=== PATIENT | male | born 1935 | race Caucasian/White ===

== ENCOUNTER 2017-06-02 18:42 | Emergency (ER) | payer MEDICARE, OTHER ==
[2017-06-02 18:56] VITALS: BP 148/53
--- NOTE | 2017-06-02 19:27 | ER Document Report ---
ED Medical Screen (RME) - General Chief Complaint: Blood Pressure Problem Stated Complaint: BLOOD PRESSURE ISSUES Time Seen by Provider: 06/02/17 19:22 Notes: Patient went to urgent care today and his blood pressure was elevated above 200 systolic. He was given 0.2 mL grams of clonidine sublingually. After that he became lightheaded and had some trouble walking. Urgent care felt that he needed to be further evaluated to the [place] to the emergency department. Patient states urgent care told him that they will recheck him tomorrow morning. Patient has been on his current blood pressure regimen for over 2 years and has not missed any doses. Patient does not usually take clonidine. Patient states he currently feels that his legs are a little heavy and is a little lightheaded but is feeling much better than when he was at urgent care. TRAVEL OUTSIDE OF THE [place] IN LAST 30 DAYS: No - Related Data Allergies/Adverse Reactions: acetaminophen [From Percocet] Allergy (Verified 06/02/17 19:14) amoxicillin [From Augmentin] Allergy (Verified 06/02/17 19:14) clavulanic acid [From Augmentin] Allergy (Verified 06/02/17 19:14) hydrocodone Allergy (Verified 06/02/17 19:14) levofloxacin [From Levaquin] Allergy (Verified 06/02/17 19:14) oxycodone [From Percocet] Allergy (Verified 06/02/17 19:14) Home Medications: Current Home Medications Aspirin 325 mg PO DAILY 06/02/17 [History] Azelastine HCl 205.5 mcg NS DAILY 06/02/17 [History] Docusate Sodium [Colace 100 mg Capsule] 100 mg PO DAILY 06/02/17 [History] Fluticasone Propionate [Flonase Allergy Relief] 9.9 ml NS DAILY 06/02/17 [ History] Glucosam/Chond-MSM 2/C/D3/Chetan [Hakhneyriz-Gnydxhaipiq-ZDZ Tab] 1 each PO DAILY 06/02/17 [History] Irbesartan/Hydrochlorothiazide [Irbesartan-Hctz 300-12.5 mg Tb] 1 tab PO DAILY 06/02/17 [History] Magnesium Oxide 400 mg PO QHS 06/02/17 [History] Metformin HCl [Metformin HCl] 1,000 mg PO BID 06/02/17 [History] Multivitamin [Multivitamins] 1 each PO QHS 06/02/17 [History] Rosuvastatin Calcium [Rosuvastatin Calcium] 20 mg PO QHS 06/02/17 [History] Saw [place] Xtr/Zinc Picolin [Saw [place] 80 mg Capsule] 1 each PO DAILY 06/02 [History] Past Medical History Renal/ Medical History: Denies: Hx Peritoneal Dialysis Physical Exam - Vital signs Vitals: Temp Pulse Resp BP Pulse Ox 98.6 F 65 15 148/53 H 97 06/02/17 18:52 06/02/17 18:52 06/02/17 18:52 06/02/17 18:52 06/02/17 18:52 Course - Vital Signs Vital signs: Temp Pulse Resp BP Pulse Ox 98.6 F 65 15 148/53 H 97 06/02/17 18:52 06/02/17 18:52 06/02/17 18:52 06/02/17 18:52 06/02/17 18:52
[2017-06-02 20:41] LABS: ABSOLUTE BASOPHILS # (AUTO) 0.1 10^3/uL (0.0-0.2); ABSOLUTE EOSINOPHILS # (AUTO) 0.2 10^3/uL (0.0-0.6); ABSOLUTE LYMPHOCYTES (AUTO) 1.5 10^3/uL (0.5-4.7); ABSOLUTE MONOCYTES (AUTO) 0.5 10^3/uL (0.1-1.4); ABSOLUTE NEUT (AUTO) 4.3 10^3/uL (1.7-8.2); BASOPHILS % (AUTO) 0.8 % (0-2); EOSINOPHILS % (AUTO) 3.7 % (0-6); HEMATOCRIT 34.6 % (37.9-51.0); HGB HCT DIFFERENCE 1.4; LYMPHOCYTES % (AUTO) 22.5 % (13-45); MEAN CORPUSCULAR HEMOGLOBIN 34.4 pg (27.0-33.4); MEAN CORPUSCULAR HGB CONC 34.9 g/dL (32.0-36.0); MEAN CORPUSCULAR VOLUME 99 fl (80-97); MONOCYTES % (AUTO) 7.3 % (3-13); SEGMENTED NEUTROPHILS % (AUTO) 65.7 % (42-78); WHITE BLOOD COUNT 6.6 10^3/uL (4.0-10.5)
[2017-06-02 21:15] LABS: ALANINE AMINOTRANSFERASE 31 U/L (21-72); ALBUMIN 3.9 g/dL (3.5-5.0); ALKALINE PHOSPHATASE 47 U/L (38-126); ANION GAP 9 (5-19); ASPARTATE AMINO TRANSFERASE 20 U/L (17-59); BILIRUBIN,DIRECT 0.4 mg/dL (0.0-0.4); BILIRUBIN,TOTAL 0.9 mg/dL (0.2-1.3); BLOOD UREA NITROGEN 13 mg/dL (7-20); CARBON DIOXIDE 25 mmol/L (22-30); CHLORIDE 104 mmol/L (98-107); CREATININE RESULT 0.96 mg/dL (0.52-1.25); GLUCOSE 127 mg/dL (75-110); POTASSIUM 4.2 mmol/L (3.6-5.0); SODIUM 138.4 mmol/L (137-145); TOTAL PROTEIN 6.7 g/dL (6.3-8.2)
--- NOTE | 2017-06-02 23:32 | ER Document Report ---
ED Blood Pressure Problem - General Chief Complaint: Blood Pressure Problem Stated Complaint: BLOOD PRESSURE ISSUES Time Seen by Provider: 06/02/17 19:22 Notes: The patient is an 81-year-old male, past medical history hypertension (out of BP meds for the past 2 years), presents from the urgent care center after his blood pressure was 210/107. He was given clonidine 0.2 mg and then felt slightly lightheaded. On arrival to the ER, his blood pressure is 148/53 and is completely asymptomatic. Patient said that he has an appointment at the urgent care center tomorrow to have his blood pressure rechecked and discuss adjusting blood pressure medications. TRAVEL OUTSIDE OF THE [place] IN LAST 30 DAYS: No - Related Data Allergies/Adverse Reactions: acetaminophen [From Percocet] Allergy (Verified 06/02/17 19:14) amoxicillin [From Augmentin] Allergy (Verified 06/02/17 19:14) clavulanic acid [From Augmentin] Allergy (Verified 06/02/17 19:14) hydrocodone Allergy (Verified 06/02/17 19:14) levofloxacin [From Levaquin] Allergy (Verified 06/02/17 19:14) oxycodone [From Percocet] Allergy (Verified 06/02/17 19:14) Home Medications: Current Home Medications Aspirin 325 mg PO DAILY 06/02/17 [History] Azelastine HCl 205.5 mcg NS DAILY 06/02/17 [History] Docusate Sodium [Colace 100 mg Capsule] 100 mg PO DAILY 06/02/17 [History] Fluticasone Propionate [Flonase Allergy Relief] 9.9 ml NS DAILY 06/02/17 [ History] Glucosam/Chond-MSM 2/C/D3/Chetan [Ufwpyufsjm-Idyptoyjxuq-QJG Tab] 1 each PO DAILY 06/02/17 [History] Irbesartan/Hydrochlorothiazide [Irbesartan-Hctz 300-12.5 mg Tb] 1 tab PO DAILY 06/02/17 [History] Magnesium Oxide 400 mg PO QHS 06/02/17 [History] Metformin HCl [Metformin HCl] 1,000 mg PO BID 06/02/17 [History] Multivitamin [Multivitamins] 1 each PO QHS 06/02/17 [History] Rosuvastatin Calcium [Rosuvastatin Calcium] 20 mg PO QHS 06/02/17 [History] Saw [place] Xtr/Zinc Picolin [Saw [place] 80 mg Capsule] 1 each PO DAILY 06/02 [History] Past Medical History - General Information source: Patient - Social History Smoking Status: Unknown if Ever Smoked Family History: Reviewed & Not Pertinent Patient has suicidal ideation: No Patient has homicidal ideation: No Renal/ Medical History: Denies: Hx Peritoneal Dialysis Review of Systems - Review of Systems Notes: REVIEW OF SYSTEMS: CONSTITUTIONAL: -fevers, -chills EENT: -eye pain, -difficulty swallowing, -nasal congestion CARDIOVASCULAR:-chest pain, -syncope. RESPIRATORY: -cough, -SOB GASTROINTESTINAL: -abdominal pain, -nausea, -vomiting, -diarrhea GENITOURINARY: -dysuria, -hematuria MUSCULOSKELETAL: -back pain, -neck pain SKIN: -rash or skin lesions. HEMATOLOGIC: -easy bruising or bleeding. LYMPHATIC: -swollen, enlarged glands. NEUROLOGICAL: -altered mental status or loss of consciousness, -headache, - neurologic symptoms PSYCHIATRIC: -anxiety, -depression. ALL OTHER SYSTEMS REVIEWED AND NEGATIVE. Physical Exam - Vital signs Vitals: Temp Pulse Resp BP Pulse Ox 98.6 F 65 15 148/53 H 97 06/02/17 18:52 06/02/17 18:52 06/02/17 18:52 06/02/17 18:52 06/02/17 18:52 - Notes Notes: PHYSICAL EXAMINATION: GENERAL: Well-appearing, well-nourished and in no acute distress. HEAD: Atraumatic, normocephalic. EYES: Pupils equal round and reactive to light, extraocular movements intact, sclera anicteric, conjunctiva are normal. ENT: nares patent, oropharynx clear without exudates. Moist mucous membranes. NECK: Normal range of motion, supple without lymphadenopathy LUNGS: Breath sounds clear to auscultation bilaterally and equal. No wheezes rales or rhonchi. HEART: Regular rate and rhythm without murmurs ABDOMEN: Soft, nontender, normoactive bowel sounds. No guarding, no rebound. No masses appreciated. EXTREMITIES: Normal range of motion, no pitting or edema. No cyanosis. NEUROLOGICAL: Cranial nerves grossly intact. Normal speech, normal gait. Normal sensory and motor exams. PSYCH: Normal mood, normal affect. SKIN: Warm, Dry, normal turgor, no rashes or lesions noted. Course - Re-evaluation Re-evalutation: On arrival to the ER, the patient's blood pressure is 148/53 after he received 0.2 mg clonidine by his primary care physician just prior to arrival. He is completely asymptomatic. Blood pressure increased to 207/100 and he remains asymptomatic. He has an appointment with his primary care physician tomorrow to discuss blood pressure adjustments. Based on ACEP guidelines, blood pressure medication adjustments should be done by primary care physician. Instructed patient about this and he understands. Given very strict return precautions. - Vital Signs Vital signs: Temp Pulse Resp BP Pulse Ox 98.6 F 65 15 148/53 H 97 06/02/17 18:52 06/02/17 18:52 06/02/17 18:52 06/02/17 18:52 06/02/17 18:52 - Laboratory Result Diagrams: 06/02/17 20:10 06/02/17 20:10 Laboratory results interpreted by me: 06/02/17 06/02/17 20:10 20:10 RBC 3.50 L Hgb 12.0 L Hct 34.6 L MCV 99 H MCH 34.4 H RDW 15.0 H Glucose 127 H Discharge - Discharge Clinical Impression: Asymptomatic hypertension Condition: Stable Disposition: HOME, SELF-CARE Additional Instructions: Follow-up with your primary care physician as scheduled tomorrow to have your blood pressure medications possibly adjusted. HIGH BLOOD PRESSURE REQUIRING TREATMENT: Your blood pressure is high. This is called "hypertension." Today's reading was 148/53 (normal is less than 140/90). Your history and exam suggest that this is not a temporary problem. You need treatment of your blood pressure. If left untreated, high blood pressure greatly increases your risk of heart attack and stroke. Please don't ignore this problem. If you have blood pressure medicine but aren't using it regularly, start taking it again. Some simple things you can do to help are: Get some aerobic exercise for at least 20 minutes on a daily basis. (See your doctor before beginning any new exercise program.) Eat a low-fat diet. Lose excess weight. Avoid salty foods and avoid adding salt to any of the foods you eat. Avoid diet pills, decongestants, "energizing" herbs, and other medicines that elevate blood pressure. There are many different medicines that treat blood pressure. If your medication causes unpleasant side effects, call your doctor. There are others you can try. Treating hypertension is a life-long investment in your health. FOLLOW-UP CARE: If you have been referred to a physician for follow-up care, call the physician s office for an appointment as you were instructed or within the next two days. If you experience worsening or a significant change in your symptoms, notify the physician immediately or return to the Emergency Department at any time for re-evaluation. Forms: Elevated Blood Pressure
== END 2017-06-02 23:55 | disposition home or self-care (01) ==
LOC: ER 18:42
DX: I10 Essential (primary) hypertension (principal); Z88.6 Allergy status to analgesic agent; Z88.0 Allergy status to penicillin; Z79.84 Long term (current) use of oral hypoglycemic drugs; Z79.82 Long term (current) use of aspirin
CPT/HCPCS: 36415; 80053; 85025; 99283

== ENCOUNTER 2017-06-04 17:19 | Observation (INO) | payer MEDICARE, OTHER ==
[2017-06-04] MEDS ORDERED: CLONIDINE HCL 0.2 MG TABLET PO ONE (17:37)
--- NOTE | 2017-06-04 17:42 | ER Document Report ---
ED Medical Screen (RME) - General Chief Complaint: High Blood Pressure Stated Complaint: BLOOD PRESSURE PROBLEMS Time Seen by Provider: 06/04/17 17:37 Mode of Arrival: Ambulatory Information source: Patient TRAVEL OUTSIDE OF THE [place] IN LAST 30 DAYS: No - HPI Patient complains to provider of: elevated BP Onset: Other - Pt. has been having difficulty keeping his BP under control. Was here yesterday for same. Was started on new med by PCP today but BP still elevated. Denies CP, SOB - Related Data Allergies/Adverse Reactions: acetaminophen [From Percocet] Allergy (Verified 06/02/17 19:14) amoxicillin [From Augmentin] Allergy (Verified 06/02/17 19:14) clavulanic acid [From Augmentin] Allergy (Verified 06/02/17 19:14) hydrocodone Allergy (Verified 06/02/17 19:14) levofloxacin [From Levaquin] Allergy (Verified 06/02/17 19:14) oxycodone [From Percocet] Allergy (Verified 06/02/17 19:14) Past Medical History Renal/ Medical History: Denies: Hx Peritoneal Dialysis Physical Exam - Vital signs Vitals: Temp Pulse BP Pulse Ox 97.8 F 86 159/125 H 97 06/04/17 17:24 06/04/17 17:24 06/04/17 17:24 06/04/17 17:24 Course - Vital Signs Vital signs: Temp Pulse Resp BP Pulse Ox 97.8 F 86 159/125 H 97 06/04/17 17:24 06/04/17 17:24 06/04/17 17:24 06/04/17 17:24
[2017-06-04 18:02] LABS: ABSOLUTE EOSINOPHILS # (AUTO) 0.2 10^3/uL (0.0-0.6); ABSOLUTE LYMPHOCYTES (AUTO) 1.5 10^3/uL (0.5-4.7); ABSOLUTE MONOCYTES (AUTO) 0.6 10^3/uL (0.1-1.4); ABSOLUTE NEUT (AUTO) 4.2 10^3/uL (1.7-8.2); BASOPHILS % (AUTO) 0.6 % (0-2); EOSINOPHILS % (AUTO) 3.7 % (0-6); HEMATOCRIT 39.2 % (37.9-51.0); HEMOGLOBIN 13.5 g/dL (13.5-17.0); HGB HCT DIFFERENCE 1.3; MEAN CORPUSCULAR HEMOGLOBIN 34.1 pg (27.0-33.4); MEAN CORPUSCULAR HGB CONC 34.4 g/dL (32.0-36.0); MEAN CORPUSCULAR VOLUME 99 fl (80-97); MONOCYTES % (AUTO) 8.8 % (3-13); RED BLOOD COUNT 3.96 10^6/uL (4.35-5.55); SEGMENTED NEUTROPHILS % (AUTO) 63.9 % (42-78); WHITE BLOOD COUNT 6.6 10^3/uL (4.0-10.5)
[2017-06-04 18:21] LABS: ALANINE AMINOTRANSFERASE 34 U/L (21-72); ALBUMIN 4.7 g/dL (3.5-5.0); ALKALINE PHOSPHATASE 52 U/L (38-126); ANION GAP 16 (5-19); ASPARTATE AMINO TRANSFERASE 23 U/L (17-59); BILIRUBIN,DIRECT 0.3 mg/dL (0.0-0.4); BILIRUBIN,TOTAL 0.8 mg/dL (0.2-1.3); BLOOD UREA NITROGEN 16 mg/dL (7-20); CALCIUM 9.7 mg/dL (8.4-10.2); CARBON DIOXIDE 24 mmol/L (22-30); CHLORIDE 104 mmol/L (98-107); CREATINE KINASE 78 U/L (55-170); CREATININE RESULT 1.08 mg/dL (0.52-1.25); GLUCOSE 154 mg/dL (75-110); POTASSIUM 4.4 mmol/L (3.6-5.0); SODIUM 143.7 mmol/L (137-145); TOTAL PROTEIN 7.9 g/dL (6.3-8.2)
[2017-06-04 18:33] LABS: CREATINE KINASE MB 1.33 ng/mL (<4.55)
[2017-06-04 18:39] LABS: TROPONIN I 0.092 ng/mL
--- NOTE | 2017-06-04 20:36 | ER Document Report ---
ED General - General Chief Complaint: High Blood Pressure Stated Complaint: BLOOD PRESSURE PROBLEMS Time Seen by Provider: 06/04/17 17:37 Mode of Arrival: Ambulatory Notes: Patient is an 81-year-old male with a past medical history of hypertension, diabetes, hyperlipidemia who presents with high blood pressure. Patient denies any additional symptoms or complaints. Patient has been taking his blood pressure twice daily and noted that it was up to 201 on 101 today which prompted him come to the emergency department. He has been taking losartan and was recently started on amlodipine and took his first dose today. He has not noted any change in his blood pressure since starting the amlodipine. He denies any chest pain, shortness of breath, headache, weakness or numbness. He has been following his primary care doctor regarding his elevated blood pressure. Nothing seems to improve or worsen his blood pressure by his report. TRAVEL OUTSIDE OF THE [place] IN LAST 30 DAYS: No - Related Data Allergies/Adverse Reactions: acetaminophen [From Percocet] Allergy (Verified 06/04/17 18:51) amoxicillin [From Augmentin] Allergy (Verified 06/04/17 18:51) clavulanic acid [From Augmentin] Allergy (Verified 06/04/17 18:51) hydrocodone Allergy (Verified 06/04/17 18:51) levofloxacin [From Levaquin] Allergy (Verified 06/04/17 18:51) oxycodone [From Percocet] Allergy (Verified 06/04/17 18:51) Home Medications: Current Home Medications Amlodipine Besylate [Norvasc 2.5 mg Tablet] 2.5 mg PO DAILY 06/04/17 [History] Docusate Sodium [Stool Softener] 100 mg PO DAILY PRN 06/04/17 [History] Multivit-Min/FA/Lycopen/Lutein [Centrum Silver Men Tablet] 1 each PO DAILY 06/04 [History] [place]-3 Fatty Acids/Fish Oil [Fish Oil 1,000 mg Capsule] 1 each PO DAILY [History] Past Medical History - General Information source: Patient - Social History Smoking Status: Never Smoker Frequency of alcohol use: None Drug Abuse: None Lives with: Spouse/Significant other Family History: Reviewed & Not Pertinent Patient has suicidal ideation: No Patient has homicidal ideation: No - Past Medical History Cardiac Medical History: Reports: Hx Hypercholesterolemia, Hx Hypertension Endocrine Medical History: Reports: Hx Diabetes Mellitus Type 2 Renal/ Medical History: Reports: Hx Kidney Stones. Denies: Hx Peritoneal Dialysis Past Surgical History: Reports: Hx Cardiac Surgery - bipas, Hx Oral Surgery - tooth, Hx Urinary Tract Surgery - prostate/kidney stone - Immunizations Hx Diphtheria, Pertussis, Tetanus Vaccination: No - unknown Review of Systems - Review of Systems Notes: Constitutional: Negative for fever. HENT: Negative for sore throat. Eyes: Negative for visual changes. Cardiovascular: Negative for chest pain. Respiratory: Negative for shortness of breath. Gastrointestinal: Negative for abdominal pain, vomiting or diarrhea. Genitourinary: Negative for dysuria. Musculoskeletal: Negative for back pain. Skin: Negative for rash. Neurological: Negative for headaches, weakness or numbness. 10 point ROS negative except as marked above and in HPI. Physical Exam - Vital signs Vitals: Temp Pulse BP Pulse Ox 97.8 F 86 159/125 H 97 06/04/17 17:24 06/04/17 17:24 06/04/17 17:24 06/04/17 17:24 Interpretation: Hypertensive Notes: PHYSICAL EXAMINATION: GENERAL: Well-appearing, well-nourished and in no acute distress. HEAD: Atraumatic, normocephalic. EYES: Pupils equal round and reactive to light, extraocular movements intact, sclera anicteric, conjunctiva are normal. ENT: nares patent, oropharynx clear without exudates. Moist mucous membranes. NECK: Normal range of motion, supple without lymphadenopathy LUNGS: Breath sounds clear to auscultation bilaterally and equal. No wheezes rales or rhonchi. HEART: Regular rate and rhythm without murmurs ABDOMEN: Soft, nontender, normoactive bowel sounds. No guarding, no rebound. No masses appreciated. EXTREMITIES: Normal range of motion, no pitting or edema. No cyanosis. NEUROLOGICAL: No focal neurological deficits. Moves all extremities spontaneously and on command. PSYCH: Normal mood, normal affect. SKIN: Warm, Dry, normal turgor, no rashes or lesions noted. Course - Re-evaluation Re-evalutation: 06/04/17 20:33 Presentation of asymptomatic hypertension. Patient denies any symptoms concerning for SAH, dissection, AL, or encephalopaty. Alert, oriented, and denies any symptoms at time of assessment. Normal neuro exam. Unfortunately, in triage the provider inappropriately ordered a broad panel of laboratories as well as an EKG for unclear reasons. Their documentation does likewise reflect that he did not have any complaints. The troponin that was sent did show mild elevation at 0.093 which I suspect is likely elevated from patient having high blood pressures at home. Patient is not complaining of any symptoms whatsoever to suggest a an acute myocardial infarction do not believe it is appropriate to begin treatment for ACS based on this troponin. I have ordered a repeat to ensure that it is not continuing to climb and if this remains stable or is decreasing will plan for discharge home with close outpatient follow-up and recommendations continue taking his blood pressure medications as directed. 06/04/17 22:14 Patient's troponin is continuing to mildly elevated unfortunately. Will therefore admit for serial markers and monitoring. I discussed with Dr. Castro who is agreeable to admission - Vital Signs Vital signs: Temp Pulse Resp BP Pulse Ox 98.2 F 62 16 147/84 H 97 06/05/17 00:56 06/05/17 00:56 06/05/17 00:56 06/05/17 00:56 06/05/17 00:56 - Laboratory Result Diagrams: 06/05/17 02:21 06/05/17 02:21 Laboratory results interpreted by me: 06/04/17 06/04/17 17:47 17:47 RBC 3.96 L MCV 99 H MCH 34.1 H RDW 15.0 H Glucose 154 H - EKG Interpretation by Me Additional EKG results interpreted by me: 06/04/17 20:35 Normal sinus rhythm. Rate 73. No ST elevations or depressions. QTC is 428. Discharge - Discharge Clinical Impression: Asymptomatic hypertension, Elevated troponin Condition: Good Disposition: ADMITTED OBSERVATION Admitting Provider: Kellie Castro Unit Admitted: [facility]
[2017-06-04] MEDS ORDERED: MAG HYDROX/AL HYDROX/SIMETH SUSP 30 ML UDCUP PO PRN (21:54)
[2017-06-04] MEDS ORDERED: NITROGLYCERIN 0.4 MG/TAB 25 TAB/BOTTLE SL PRN (21:54)
[2017-06-04] MEDS ORDERED: DOCUSATE SODIUM 100 MG CAPSULE PO PRN (21:54)
[2017-06-04] MEDS ORDERED: (PENDING PHARMACY ID) (Rosuvastatin Calcium [Rosuvastatin Calcium] 20 MG) PO SCH (22:00)
[2017-06-04] MEDS ORDERED: MAGNESIUM OXIDE 400 MG TABLET PO SCH (22:00)
[2017-06-04] MEDS ORDERED: (PENDING PHARMACY ID) (Irbesartan/Hydrochlorothiazide [Irbesartan-Hctz 300-12.5 Mg Tb] 1 T PO SCH (22:00)
[2017-06-04] MEDS ORDERED: HYDROCHLOROTHIAZIDE 12.5 MG CAPSULE PO ONE (22:45)
[2017-06-04] MEDS ORDERED: LOSARTAN POTASSIUM 50 MG TABLET PO ONE (22:45)
[2017-06-04] MEDS: HEPARIN SOD (PORCINE) 5,000 UNIT/ML 1 ML SYRINGE SUBCUT SCH (23:24)
[2017-06-05 02:48] LABS: ABSOLUTE EOSINOPHILS # (AUTO) 0.4 10^3/uL (0.0-0.6); ABSOLUTE LYMPHOCYTES (AUTO) 1.7 10^3/uL (0.5-4.7); ABSOLUTE MONOCYTES (AUTO) 0.6 10^3/uL (0.1-1.4); ABSOLUTE NEUT (AUTO) 3.7 10^3/uL (1.7-8.2); BASOPHILS % (AUTO) 0.7 % (0-2); EOSINOPHILS % (AUTO) 5.6 % (0-6); HEMATOCRIT 33.3 % (37.9-51.0); HEMOGLOBIN 11.5 g/dL (13.5-17.0); HGB HCT DIFFERENCE 1.2; LYMPHOCYTES % (AUTO) 26.5 % (13-45); MEAN CORPUSCULAR HEMOGLOBIN 34.1 pg (27.0-33.4); MEAN CORPUSCULAR HGB CONC 34.6 g/dL (32.0-36.0); MEAN CORPUSCULAR VOLUME 99 fl (80-97); MONOCYTES % (AUTO) 9.2 % (3-13); RED BLOOD COUNT 3.38 10^6/uL (4.35-5.55); RED CELL DISTRIBUTION WIDTH 14.9 % (11.5-14.0); WHITE BLOOD COUNT 6.3 10^3/uL (4.0-10.5)
[2017-06-05 02:55] LABS: ANION GAP 11 (5-19); BLOOD UREA NITROGEN 15 mg/dL (7-20); CARBON DIOXIDE 25 mmol/L (22-30); CHLORIDE 105 mmol/L (98-107); CHOLESTEROL 98.65 mg/dL (0-200); CREATINE KINASE 55 U/L (55-170); CREATININE RESULT 1.06 mg/dL (0.52-1.25); Direct HDL 37 mg/dL (>40); GLUCOSE 212 mg/dL (75-110); POTASSIUM 4.5 mmol/L (3.6-5.0); SODIUM 140.5 mmol/L (137-145); TRIGLYCERIDES 69 mg/dL (<150)
[2017-06-05 03:06] LABS: CREATINE KINASE MB 0.78 ng/mL (<4.55); DIRECT LDL 50 mg/dL (<100); TROPONIN I 0.082 ng/mL
--- NOTE | 2017-06-05 05:02 | PDOC H&P ---
History of Present Illness Admission Date/PCP: 06/04/17 21:54 Patient complains of: Elevated blood pressure History of Present Illness: IRENE WISE is a 81 year old male with a past medical history of hypertension , diabetes, dyslipidemia who presents with high blood pressure. Patient has been obsessively checking his blood pressure throughout the day resulting in anxiety and uncontrolled hypertension prompting to seek evaluation emergency room with a systolic blood pressure greater than 100. Patient was started on amlodipine 2.5 mg yesterday for the above cause. Patient denies change of diet , excessive caffeine, alcohol and denies chest pain palpitations nausea vomiting or diaphoresis. Patient is prescribed Xanax but has not taken any. In the emergency room his initial workup is notable for an elevated troponin without EKG changes or symptoms he is referred to the hospitalist for admission. Past Medical History Cardiac Medical History: Reports: Hyperlipidema, Hypertension Endocrine Medical History: Reports: Diabetes Mellitus Type 2 Psychiatric Medical History: Reports: General Anxiety Disorder Denies: Depression Social History Lives with: Spouse/Significant other Smoking Status: Never Smoker Frequency of Alcohol Use: Rare Hx Recreational Drug Use: No Hx Prescription Drug Abuse: No - Advance Directive Resuscitation Status: Full Code Family History Family History: Hypertension Parental Family History Reviewed: Yes Children Family History Reviewed: Yes Sibling(s) Family History Reviewed.: Yes Medication/Allergy Home Medications: Aspirin 325 mg PO DAILY 06/02/17 Glucosam/Chond-MSM 2/C/D3/Chetan [Cpnxlzqiyb-Leatoumyohi-FMW Tab] 1 each PO DAILY 06/02/17 Irbesartan/Hydrochlorothiazide [Irbesartan-Hctz 300-12.5 mg Tb] 1 tab PO DAILY 06/02/17 Magnesium Oxide 400 mg PO QHS 06/02/17 Metformin HCl [Metformin HCl] 1,000 mg PO BID 06/02/17 Rosuvastatin Calcium [Rosuvastatin Calcium] 20 mg PO QHS 06/02/17 [place] Xtr/Zinc Picolin [Saw [place] 80 mg Capsule] 450 mg PO DAILY 06/02 Amlodipine Besylate [Norvasc 2.5 mg Tablet] 2.5 mg PO DAILY 06/04/17 Docusate Sodium [Stool Softener] 100 mg PO DAILY PRN 06/04/17 Multivit-Min/FA/Lycopen/Lutein [Centrum Silver Men Tablet] 1 each PO DAILY 06/04 [place]-3 Fatty Acids/Fish Oil [Fish Oil 1,000 mg Capsule] 1 each PO DAILY Allergies/Adverse Reactions: acetaminophen [From Percocet] Allergy (Verified 06/04/17 18:51) amoxicillin [From Augmentin] Allergy (Verified 06/04/17 18:51) clavulanic acid [From Augmentin] Allergy (Verified 06/04/17 18:51) hydrocodone Allergy (Verified 06/04/17 18:51) levofloxacin [From Levaquin] Allergy (Verified 06/04/17 18:51) oxycodone [From Percocet] Allergy (Verified 06/04/17 18:51) Review of Systems Constitutional: ABSENT: chills, fever(s), headache(s), weight gain, weight loss Eyes: ABSENT: visual disturbances Ears: ABSENT: hearing changes Cardiovascular: ABSENT: chest pain, dyspnea on exertion, edema, orthropnea, palpitations Respiratory: ABSENT: cough, hemoptysis Gastrointestinal: ABSENT: abdominal pain, constipation, diarrhea, hematemesis, hematochezia, nausea, vomiting Genitourinary: ABSENT: dysuria, hematuria Musculoskeletal: ABSENT: joint swelling Integumentary: ABSENT: rash, wounds Neurological: ABSENT: abnormal gait, abnormal speech, confusion, dizziness, focal weakness, syncope Psychiatric: ABSENT: anxiety, depression, homidical ideation, suicidal ideation Endocrine: ABSENT: cold intolerance, heat intolerance, polydipsia, polyuria Hematologic/Lymphatic: ABSENT: easy bleeding, easy bruising Physical Exam Vital Signs: Temp Pulse Resp BP Pulse Ox 98.2 F 62 16 147/84 H 97 06/05/17 00:56 06/05/17 00:56 06/05/17 00:56 06/05/17 00:56 06/05/17 00:56 General appearance: PRESENT: no acute distress, well-developed, well-nourished Head exam: PRESENT: atraumatic, normocephalic Eye exam: PRESENT: conjunctiva pink, EOMI, PERRLA. ABSENT: scleral icterus Ear exam: PRESENT: normal external ear exam Mouth exam: PRESENT: moist, tongue midline Neck exam: ABSENT: carotid bruit, JVD, lymphadenopathy, thyromegaly Respiratory exam: PRESENT: clear to auscultation jamar. ABSENT: rales, rhonchi, wheezes Cardiovascular exam: PRESENT: RRR. ABSENT: diastolic murmur, rubs, systolic murmur Pulses: PRESENT: normal dorsalis pedis pul Vascular exam: PRESENT: normal capillary refill GI/Abdominal exam: PRESENT: normal bowel sounds, soft. ABSENT: distended, guarding, mass, organolmegaly, rebound, tenderness Rectal exam: PRESENT: deferred Extremities exam: PRESENT: full ROM. ABSENT: calf tenderness, clubbing, pedal edema Neurological exam: PRESENT: alert, awake, oriented to person, oriented to place , oriented to time, oriented to situation, CN II-XII grossly intact. ABSENT: motor sensory deficit Psychiatric exam: PRESENT: appropriate affect, normal mood. ABSENT: homicidal ideation, suicidal ideation Skin exam: PRESENT: dry, intact, warm. ABSENT: cyanosis, rash Results Laboratory Results: 06/05/17 02:21 06/05/17 02:21 06/05/17 06/05/17 02:21 02:21 WBC 6.3 RBC 3.38 L Hgb 11.5 L Hct 33.3 L MCV 99 H MCH 34.1 H MCHC 34.6 RDW 14.9 H Plt Count 196 Seg Neutrophils % 58.0 Lymphocytes % 26.5 Monocytes % 9.2 Eosinophils % 5.6 Basophils % 0.7 Absolute Neutrophils 3.7 Absolute Lymphocytes 1.7 Absolute Monocytes 0.6 Absolute Eosinophils 0.4 Absolute Basophils 0.0 Sodium 140.5 Potassium 4.5 Chloride 105 Carbon Dioxide 25 Anion Gap 11 BUN 15 Creatinine 1.06 Est GFR ( Amer) > 60 Est GFR (Non-Af Amer) > 60 Glucose 212 H Calcium 9.0 Triglycerides 69 Cholesterol 98.65 LDL Cholesterol Direct 50 VLDL Cholesterol 14.0 HDL Cholesterol 37 L 06/05/17 06/05/17 02:21 02:21 Creatine Kinase 55 CK-MB (CK-2) 0.78 Troponin I 0.082 Assessment & Plan - Diagnosis (1) Asymptomatic hypertension Is this a current diagnosis for this admission?: Yes Plan: Observation on a telemetry bed serial cardiac enzymes, reassurance amlodipine 2.5 twice daily. (2) Elevated troponin Is this a current diagnosis for this admission?: Yes Plan: Serial cardiac enzymes, consider Cardiolite stress test. (3) Anxiety Is this a current diagnosis for this admission?: Yes Plan: Reassurance with low-dose Xanax versus trazodone as needed - Time Time Spent: 30 to 50 Minutes
[2017-06-05] MEDS: HEPARIN SOD (PORCINE) 5,000 UNIT/ML 1 ML SYRINGE SUBCUT SCH (06:13)
[2017-06-05 09:35] LABS: CREATINE KINASE MB 0.81 ng/mL (<4.55); TROPONIN I 0.067 ng/mL
[2017-06-05] MEDS ORDERED: LOSARTAN POTASSIUM 50 MG TABLET PO SCH (10:00)
[2017-06-05] MEDS ORDERED: AMLODIPINE BESYLATE 2.5 MG TABLET PO SCH (10:00)
[2017-06-05] MEDS ORDERED: ASPIRIN 325 MG TABLET PO SCH (10:00)
[2017-06-05] MEDS ORDERED: HYDROCHLOROTHIAZIDE 12.5 MG CAPSULE PO SCH (10:00)
[2017-06-05] MEDS ORDERED: AMINOPHYLLINE INJ/PF 250 MG/10 ML SDV IV ONE (12:48)
[2017-06-05] MEDS ORDERED: REGADENOSON INJ 0.4 MG/5 ML DISP.SYRIN IV ONE (12:48)
--- NOTE | 2017-06-05 13:44 | EKG REPORT ---
SEVERITY:- NORMAL ECG - SINUS RHYTHM LVH : Confirmed by: Verenice Herrera 05-Jun-2017 13:43:29
--- NOTE | 2017-06-05 14:07 | DRAGON STRESS TEST REPORT ---
INTRAVENOUS LEXISCAN CARDIOLITE STRESS TEST USING SINGLE PHOTON EMMISION COMPUTERIZED TOMOGRAPHIC. DATE OF PROCEDURE: June 05, 2017 INDICATION : Chest pain CARDIAC RISK FACTORS: Diabetes, hypertension, dyslipidemia, history of prior CABG RESTING EKG: Sinus rhythm, no baseline ST-T wave changes noted STRESS EKG: No significant changes noted with LexiScan bolus REASON FOR TERMINATION: Protocol. PROCEDURE REPORT: Baseline heart rate 68 beats per minute with blood pressure of 156/73. Patient had no significant complaints. Heart rate at 2 minutes post bolus 89 with a blood pressure of 154/87. 3 minutes post bolus heart rate 80 with blood pressure of 145/89. No significant EKG changes were noted. Patient had no significant complaints during the procedure or postprocedure. Patient injected with Aminophyllin 75 mg at 3 minutes or later after Lexiscan bolus. CONCLUSIONS: Normal EKG and hemodynamic response to IV LexiScan. NUCLEAR DATA: At rest the patient was given 13.89 millicuries of technetium 99 sestamibi injected intravenously. As per protocol rest gated SPECT images were obtained. Subsequently the patient was given intravenous LexiScan at a dose of 0.4 mg in 5 mL intravenously, followed by flush with normal saline. Subsequently the stress dose of 41.7 millicuries of technetium 99 sestamibi was injected intravenously. As per protocol stress gated images were obtained. NUCLEAR INTERPRETATION: Both raw and processed data were used for interpretation. Visual, qualitative, computer-generated quantitative data was used. There was good myocardial uptake of technetium compound. Motion artifact and soft tissue attenuations were noted. Increased visceral uptake was noted. No definitive areas of transient perfusion defect noted. Small area of moderate to severe fixed defect noted in the basal inferior wall suggestive of prior myocardial infarction. EKG gated imaging showed LV EF at 42 %, rest and stress gated EF similar visually, basal inferior wall hypokinesia noted. T. I D. ratio was 0.92. Lung heart ratio noted to be within normal limits 0.32. No significant extracardiac and abnormal radiotracer activities were noted. RV free wall uptake was noted to be WNL. IMPRESSION: Also refer to comments under nuclear interpretation. Also test results needs to be interpreted in the context of pretest probability. 1. There is no definitive scintigraphic evidence of LexiScan induced myocardial ischemia. 2. Small area of moderate to severe fixed defect noted in the basal inferior wall suggestive of prior myocardial infarction. 3. EKG gated imaging shows left ventricular ejection fraction of approximately 42 % with basal inferior wall hypokinesia. 4. Clinical correlation requested as occasionally single vessel disease or balanced ischemia could be missed. In approximately 10% of the cases Lexiscan may not cause adequate vasodilatory stress. RECOMMENDATIONS: Aggressive risk factor modification, medical therapy. Clinical correlation with echocardiogram derived ejection fraction. Inability to exercise by itself can lead to increased cardiovascular event risks. Consider cardiology consultation and or follow-up if clinically indicated. I AM AVAILABLE FOR CARDIOLOGY CONSULTATION AND FOLLOWUP IF REQUESTED BY PMD Verenice Herrera M.D., [employer] Checker greenskeeper supervisor, Board certified in cardiovascular diseases, Nuclear cardiology, Echocardiography Cardiac CT and cardiac MRI Ph. [phone] [facility]
[2017-06-05 15:00] VITALS: BP 147/84
--- NOTE | 2017-06-05 16:23 | PDOC DISCHARGE SUMMARY ---
General - Admit/Disc Date/PCP Admission Date/Primary Care Provider: 06/04/17 21:54 Discharge Date: 06/05/17 - Discharge Diagnosis (1) Asymptomatic hypertension Is this a current diagnosis for this admission?: Yes Summary: Patient's Norvasc has been increased to 5 mg daily. (2) Elevated troponin Is this a current diagnosis for this admission?: Yes Summary: Patient had a Cardiolite stress test which showed no reversible ischemia. (3) Anxiety Is this a current diagnosis for this admission?: Yes - Additional Information Resuscitation Status: Full Code Discharge Diet: Cardiac, Diabetic Discharge Activity: Activity As Tolerated Home Medications: Amlodipine Besylate [Norvasc 2.5 mg Tablet] 5 mg PO DAILY #30 tablet 06/05/17 Aspirin [Ecotrin 325 mg EC Tablet] 325 mg PO QHS 06/05/17 Docusate Sodium [Colace 100 mg Capsule] 100 mg PO DAILY 06/05/17 Glucosamine Sulfate Dipot Chlr [Glucosamine] 1,000 mg PO DAILY 06/05/17 Irbesartan/Hydrochlorothiazide [Irbesartan-Hctz 300-12.5 mg Tb] 1 tab PO DAILY 06/05/17 Magnesium Oxide [Mag-Ox 400 mg Tablet] 400 mg PO QHS 06/05/17 Metformin HCl [Glucophage] 1,000 mg PO BID 06/05/17 Multivit-Min/FA/Lycopen/Lutein [Centrum Silver Men Tablet] 1 tab PO QHS [place]-3 Fatty Acids/Fish Oil [Fish Oil 1,000 mg Capsule] 1,000 mg PO DAILY 06/05 Rosuvastatin Calcium [Crestor 20 mg Tablet] 20 mg PO QHS 06/05/17 Saw Bighorn Fruit [Saw Bighorn] 450 mg PO DAILY 06/05/17 History of Present Illness History of Present Illness: IRENE WISE is a 81 year old male with past medical history of hypertension diabetes and hyperlipidemia who also has had problems with hypertension. Patient has noted he has had elevated blood pressures. The patient was recently started on Norvasc 2.5 mg a day. The patient Nu[place] any chest pain or palpitations. The patient was noted to have an elevated troponin in the emergency room and is admitted for observation. Hospital Course Hospital Course: 81-year-old gentleman with a history of hypertension as well as diabetes who presented with elevated blood pressures and some anxiety. During his workup in the emergency room he was found to have an elevated troponin. Patient was admitted for cardiac workup. He did not have a substantial increase in his troponins and he then underwent Cardiolite stress testing that was normal. His Norvasc was increased it was felt that he had hypertensive urgency as the cause for his elevated troponin. The patient was stable otherwise and it was felt that he was stable for discharge to home. He will follow-up with his primary care doctor next week and will monitor his blood pressure as an outpatient. His other medical problems were stable during this hospitalization. Physical Exam Vital Signs: Temp Pulse Resp BP Pulse Ox 97.5 F 70 18 147/84 H 98 06/05/17 15:12 06/05/17 15:12 06/05/17 15:12 06/05/17 15:12 06/05/17 15:12 Intake & Output 06/04/17 06/05/17 06/06/17 06:59 06:59 06:59 Intake Total 5 1200 Balance 5 1200 Weight 91.2 kg General appearance: PRESENT: no acute distress Eye exam: PRESENT: conjunctiva pink. ABSENT: scleral icterus Mouth exam: PRESENT: moist, tongue midline Neck exam: ABSENT: JVD Respiratory exam: PRESENT: clear to auscultation jamar. ABSENT: rales, rhonchi, wheezes Cardiovascular exam: PRESENT: RRR. ABSENT: diastolic murmur, rubs, systolic murmur GI/Abdominal exam: PRESENT: normal bowel sounds, soft. ABSENT: distended, guarding, mass, organolmegaly, rebound, tenderness Extremities exam: ABSENT: calf tenderness, clubbing, pedal edema Neurological exam: PRESENT: alert, awake, oriented to person, oriented to place , oriented to time, oriented to situation, CN II-XII grossly intact. ABSENT: motor sensory deficit Psychiatric exam: PRESENT: appropriate affect Skin exam: PRESENT: dry, intact, warm. ABSENT: cyanosis, rash Results Laboratory Results: 06/05/17 02:21 06/05/17 02:21 06/05/17 06/05/17 02:21 02:21 WBC 6.3 RBC 3.38 L Hgb 11.5 L Hct 33.3 L MCV 99 H MCH 34.1 H MCHC 34.6 RDW 14.9 H Plt Count 196 Seg Neutrophils % 58.0 Lymphocytes % 26.5 Monocytes % 9.2 Eosinophils % 5.6 Basophils % 0.7 Absolute Neutrophils 3.7 Absolute Lymphocytes 1.7 Absolute Monocytes 0.6 Absolute Eosinophils 0.4 Absolute Basophils 0.0 Sodium 140.5 Potassium 4.5 Chloride 105 Carbon Dioxide 25 Anion Gap 11 BUN 15 Creatinine 1.06 Est GFR ( Amer) > 60 Est GFR (Non-Af Amer) > 60 Glucose 212 H Calcium 9.0 Triglycerides 69 Cholesterol 98.65 LDL Cholesterol Direct 50 VLDL Cholesterol 14.0 HDL Cholesterol 37 L 06/05/17 06/05/17 06/05/17 02:21 02:21 08:52 Creatine Kinase 55 CK-MB (CK-2) 0.78 0.81 Troponin I 0.082 0.067 Qualifiers PATEINT BEING DISCHARGED WITH ANY OF THE FOLLOWING DIAGNOSIS?: No Plan Discharge Plan: Patient is discharged home in stable condition. Follow-up with primary care doctor 1 week. Time Spent: Less than 30 Minutes
[2017-06-05] MEDS ORDERED: ATORVASTATIN CALCIUM 40 MG TABLET PO SCH (22:00)
== END 2017-06-05 15:25 | disposition home or self-care (01) ==
LOC: ER 17:19 → EH 21:54 → UNDOADMOB 22:27 → 4N 06-05 00:36
PROVIDERS: ADMIT Internal Medicine; ATTEND Internal Medicine
DX: I10 Essential (primary) hypertension (principal); R74.8 Abnormal levels of other serum enzymes; F41.1 Generalized anxiety disorder; E11.9 Type 2 diabetes mellitus without complications; E78.5 Hyperlipidemia, unspecified; Z79.899 Other long term (current) drug therapy; Z82.49 Family history of ischemic heart disease and other diseases of the circulatory system; Z79.82 Long term (current) use of aspirin; Z79.84 Long term (current) use of oral hypoglycemic drugs; Z95.1 Presence of aortocoronary bypass graft
CPT/HCPCS: 93005; 99285; 96372; 36415 ×2; 82553 ×2; 82550 ×2; 85025 ×2; 80048; 80053; 84484 ×2; 80061; 93017; 78452; 93010; G0378 ×2; A9500; J2785; A9270 ×7; J1644 ×2; J3490 ×2; J0280; Q9969

== ENCOUNTER 2020-06-18 12:24 | Emergency (ER) | payer MEDICARE, OTHER ==
--- NOTE | 2020-06-18 14:10 | ER Document Report ---
ED Medical Screen (RME) - General Chief Complaint: Fall Stated Complaint: FALL/ HEADACHE, BALANCE PROBLEMS Time Seen by Provider: 06/18/20 14:01 Mode of Arrival: Wheelchair Information source: Patient Notes: HPI; 85-year-old male presents to the emergency room after being hit in his chest and head 4 days ago while trying to pull down an attic stairwell. Patient states after he was hit in his head and chest he fell backward hitting his head on the wall. Positive LOC. States has been having a headache and feeling off balance since that happened. He denies any nausea, vomiting, denies any shortness of breath or difficulty breathing. Has been taking Tylenol without relief. PE: Alert and oriented x3. Mild distress noted. PERRLA, EOMI negative for torres signs, negative for raccoon eyes. Lungs: Clear to auscultation without rales, rhonchi, wheezes. Heart: Regular rate and rhythm without murmurs, rubs, gallops. I have greeted and performed a rapid initial assessment of this patient. A comprehensive ED assessment and evaluation of the patient, analysis of test results and completion of the medical decision making process will be conducted by additional ED providers. I have specifically instructed the patient or family members with the patient to immediately return to any nursing staff should anything change in the patient's condition or with their chief complaint. TRAVEL OUTSIDE OF THE [place] IN LAST 30 DAYS: No - Related Data Allergies/Adverse Reactions: amoxicillin [From Augmentin] Allergy (Verified 06/18/20 14:02) clavulanic acid [From Augmentin] Allergy (Verified 06/18/20 14:02) hydrocodone Allergy (Verified 06/18/20 14:02) levofloxacin [From Levaquin] Allergy (Verified 06/18/20 14:02) oxycodone [From Percocet] Allergy (Verified 06/18/20 14:02) Past Medical History - Social History Chew tobacco use (# tins/day): No Drug Abuse: None - Past Medical History Cardiac Medical History: Reports: Hx Hypercholesterolemia, Hx Hypertension Endocrine Medical History: Reports: Hx Diabetes Mellitus Type 2 Renal/ Medical History: Reports: Hx Kidney Stones. Denies: Hx Peritoneal Dialysis Psychiatric Medical History: Denies: Hx Depression Past Surgical History: Reports: Hx Cardiac Surgery - bipas, Hx Oral Surgery - tooth, Hx Urinary Tract Surgery - prostate/kidney stone - Immunizations Hx Diphtheria, Pertussis, Tetanus Vaccination: No - unknown Physical Exam - Vital signs Vitals: Temp Pulse Resp BP Pulse Ox 97.3 F 76 16 142/76 H 100 06/18/20 12:30 06/18/20 12:30 06/18/20 12:30 06/18/20 12:30 06/18/20 12:30 Course - Vital Signs Vital signs: Temp Pulse Resp BP Pulse Ox 97.3 F 76 16 142/76 H 100 06/18/20 12:30 06/18/20 12:30 06/18/20 12:30 06/18/20 12:30 06/18/20 12:30
--- NOTE | 2020-06-18 14:32 | RADIOLOGY REPORT (SQ) ---
EXAM DESCRIPTION: CHEST 2 VIEWS IMAGES COMPLETED DATE/TIME: 06/18/2020 2:19 pm REASON FOR STUDY: chest pain COMPARISON: None. EXAM PARAMETERS: NUMBER OF VIEWS: two views TECHNIQUE: Digital Frontal and Lateral radiographic views of the chest acquired. RADIATION DOSE: NA LIMITATIONS: none FINDINGS: LUNGS AND PLEURA: No opacities, masses or pneumothorax. No pleural effusion. MEDIASTINUM AND HILAR STRUCTURES: No masses or contour abnormalities. HEART AND VASCULAR STRUCTURES: Heart normal size. No evidence for failure. BONES: No acute findings. HARDWARE: Sternotomy wires. Graft marker. OTHER: No other significant finding. IMPRESSION: NO ACUTE RADIOGRAPHIC FINDING IN THE CHEST. TECHNICAL DOCUMENTATION: JOB ID: [id number] 2010 [employer]- All Rights Reserved Reading location - IP/workstation name: [email or web address]
--- NOTE | 2020-06-18 14:46 | ER Document Report ---
ED Fall - General Chief Complaint: Fall Stated Complaint: FALL/ HEADACHE, BALANCE PROBLEMS Time Seen by Provider: 06/18/20 14:01 Mode of Arrival: Wheelchair Information source: Patient Notes: 85-year-old male patient presenting to the emergency department chief complaint of fall injury. Patient reports he fell 4 days ago. He was in a standing position when he tripped falling backwards striking the back of his head onto a hard surface. He also reports that a hammer that he was working with fell onto his chest. Patient denies any loss of consciousness at the time, he has not had any nausea or vomiting since the event. He did call his special education inclusion teacher this morning, told him what it happened and his special education inclusion teacher wanted him to come to the emergency department. Patient is alert, oriented, answering all questions appropriately. I am seeing him after he has been seen by the triage provider. He was brought straight to the trauma bay as apparently has some type of bleeding going on on his head CT. There is no official report yet. I anticipate a call from the radiologist at any time. I will review these images immediately with the ER attending physician. TRAVEL OUTSIDE OF THE [place] IN LAST 30 DAYS: No - Related data Allergies/Adverse Reactions: amoxicillin [From Augmentin] Allergy (Verified 06/18/20 14:02) clavulanic acid [From Augmentin] Allergy (Verified 06/18/20 14:02) hydrocodone Allergy (Verified 06/18/20 14:02) levofloxacin [From Levaquin] Allergy (Verified 06/18/20 14:02) oxycodone [From Percocet] Allergy (Verified 06/18/20 14:02) Past Medical History - General Information source: Patient - Social History Smoking Status: Never Smoker Chew tobacco use (# tins/day): No Drug Abuse: None Family History: Hypertension - Past Medical History Cardiac Medical History: Reports: Hx Hypercholesterolemia, Hx Hypertension Endocrine Medical History: Reports: Hx Diabetes Mellitus Type 2 Renal/ Medical History: Reports: Hx Kidney Stones. Denies: Hx Peritoneal Dialysis Psychiatric Medical History: Denies: Hx Depression Past Surgical History: Reports: Hx Cardiac Surgery - bipas, Hx Oral Surgery - tooth, Hx Urinary Tract Surgery - prostate/kidney stone - Immunizations Hx Diphtheria, Pertussis, Tetanus Vaccination: No - unknown Hx Pneumococcal Vaccination: 08/09/14 Review of Systems - Review of Systems Musculoskeletal: See HPI Neurological/Psychological: See HPI -: Yes All other systems reviewed and negative Physical Exam - Vital signs Vitals: Temp Pulse Resp BP Pulse Ox 97.3 F 76 16 142/76 H 100 06/18/20 12:30 06/18/20 12:30 06/18/20 12:30 06/18/20 12:30 06/18/20 12:30 - Notes Notes: PHYSICAL EXAMINATION: GENERAL: Well-appearing, well-nourished and in no acute distress. HEAD: Atraumatic, normocephalic. EYES: Pupils equal round and reactive to light, extraocular movements intact, sclera anicteric, conjunctiva are normal. ENT: Nares patent, oropharynx clear without exudates. Moist mucous membranes. No hemotympanum, no battles sign, no racoon eyes. NECK: Normal range of motion, supple without lymphadenopathy LUNGS: Breath sounds clear to auscultation bilaterally and equal. No wheezes rales or rhonchi. HEART: Regular rate and rhythm without murmurs ABDOMEN: Soft, nontender, nondistended abdomen. No guarding, no rebound. No ma sses appreciated. Musculoskeletal: Normal range of motion, no pitting or edema. No cyanosis. NEUROLOGICAL: Cranial nerves grossly intact. Normal speech, normal gait. Normal sensory, motor exams PSYCH: Normal mood, normal affect. SKIN: Bruising noted to chest wall over the sternum. Mild tenderness with palpation. Course - Re-evaluation Re-evalutation: 06/18/20 14:[address] 06/18/20 14:05 IMPRESSION: Acute/ subacute right subdural hematoma with 5 mm midline shift to the left. EVIDENCE OF ACUTE STROKE: NO. Chest X-Ray 06/18/20 14:07 IMPRESSION: NO ACUTE RADIOGRAPHIC FINDING IN THE CHEST. 06/18/20 14:49 Called and spoke with [facility] trauma services. Patient has been accepted by Dr. Miranda. They are going to try to arrange ground transport as patient is neurologically intact at this time. 06/18/20 15:00 Family member is at bedside, patient and family member both updated on plan of care and the need for transfer to tertiary facility. 06/18/20 15:40 [facility] ground at bedside to transport Patient stable for transport. - Vital Signs Vital signs: Temp Pulse Resp BP Pulse Ox 98 F 68 15 151/77 H 100 06/18/20 15:02 06/18/20 15:00 06/18/20 15:02 06/18/20 15:02 06/18/20 15:02 - Laboratory Result Diagrams: 06/18/20 14:49 06/18/20 14:49 Laboratory results interpreted by me: 06/18/20 14:49 WBC 13.0 H RBC 3.43 L Hgb 11.7 L Hct 34.2 L MCV 100 H MCH 34.1 H RDW 17.0 H Lymph % (Auto) 6.7 L Absolute Neuts (auto) 11.2 H Seg Neutrophils % 85.5 H - EKG Interpretation by Me EKG shows normal: Sinus rhythm - Rate of 68, normal axis, normal intervals, no obvious ST segment elevations or depressions. Discharge - Discharge Clinical Impression: Subdural hematoma, acute Condition: Fair Disposition: [facility]
--- NOTE | 2020-06-18 14:54 | RADIOLOGY REPORT (SQ) ---
EXAM DESCRIPTION: CT HEAD WITHOUT IMAGES COMPLETED DATE/TIME: 06/18/2020 2:40 pm REASON FOR STUDY: dizziness COMPARISON: None. TECHNIQUE: Axial images acquired through the brain without intravenous contrast. Images reviewed wi th bone, brain and subdural windows. Additional sagittal and coronal reconstructions were generated. Images stored on PACS. All CT scanners at this facility use dose modulation, iterative reconstruction, and/or weight based d osing when appropriate to reduce radiation dose to as low as reasonably achievable (ALARA). [facility]: Dose Right [facility]: CareDose [facility]: Dose Right [facility]: Teradose 4D [facility]: Smart Mostro RADIATION DOSE: CT Rad equipment meets quality standard of care and radiation dose reduction techniq ues were employed. CTDIvol: 53.2 mGy. DLP: 1070 mGy-cm. mGy. LIMITATIONS: None. FINDINGS: VENTRICLES: Normal size and contour. CEREBRUM: No masses. Acute/subacute right subdural hematoma. 5 mm subfalcine midline shift. No jude dence for acute infarction. Normal belle/white matter differentiation. No areas of low density in the white matter. CEREBELLUM: No masses. No hemorrhage. No alteration of density. No evidence for acute infarction. EXTRAAXIAL SPACES: Acute/ subacute right subdural hematoma. Maximal thickness 19.6 mm in the right p arietal region. ORBITS AND GLOBE: No intra- or extraconal masses. Normal contour of globe without masses. CALVARIUM: No fracture. PARANASAL SINUSES: No fluid or mucosal thickening. SOFT TISSUES: No mass or hematoma. OTHER: No other significant finding. IMPRESSION: Acute/ subacute right subdural hematoma with 5 mm midline shift to the left. EVIDENCE OF ACUTE STROKE: NO. COMMENT: Pertinent findings on the imaging study reported as a CRITICAL RESULT to CHRISTINE SOW NP at14:47 on 06/18/2020. Category of Critical Result: Subdural hematoma Quality ID # [id number]: Final reports with documentation of one or more dose reduction techniques (e.g., Au tomated exposure control, adjustment of the mA and/or kV according to patient size, use of iterative reconstruction technique) TECHNICAL DOCUMENTATION: JOB ID: [id number] 2010 [employer]- All Rights Reserved Reading location - IP/workstation name: [email or web address]
[2020-06-18 15:04] LABS: ABSOLUTE BASOPHILS # (AUTO) 0.1 10^3/uL (0.0-0.2); ABSOLUTE LYMPHOCYTES (AUTO) 0.9 10^3/uL (0.5-4.7); ABSOLUTE NEUT (AUTO) 11.2 10^3/uL (1.7-8.2); BASOPHILS % (AUTO) 0.4 % (0-2); EOSINOPHILS % (AUTO) 0.1 % (0-6); HEMATOCRIT 34.2 % (37.9-51.0); HEMOGLOBIN 11.7 g/dL (13.5-17.0); LYMPHOCYTES % (AUTO) 6.7 % (13-45); MEAN CORPUSCULAR HEMOGLOBIN 34.1 pg (27.0-33.4); MEAN CORPUSCULAR HGB CONC 34.2 g/dL (32.0-36.0); MEAN CORPUSCULAR VOLUME 100 fl (80-97); MONOCYTES % (AUTO) 7.3 % (3-13); PLATELET COUNT 337 10^3/uL (150-450); RED BLOOD COUNT 3.43 10^6/uL (4.35-5.55); SEGMENTED NEUTROPHILS % (AUTO) 85.5 % (42-78); TOTAL CELLS COUNTED % (AUTO) 100 %
[2020-06-18] MEDS ORDERED: ACETAMINOPHEN 1,000 MG/100 ML RTUPB IV ONE (15:12)
--- NOTE | 2020-06-18 17:50 | EKG REPORT ---
SEVERITY:- BORDERLINE ECG - SINUS RHYTHM BORDERLINE T ABNORMALITIES, INFERIOR LEADS : Confirmed by: Verenice Herrera 18-Jun-2020 17:49:07
[2020-06-18 18:50] VITALS: BP 151/77
== END 2020-06-18 15:40 | disposition short-term general hospital (02) ==
LOC: ER 12:24
DX: S06.5X0A Traumatic subdural hemorrhage without loss of consciousness, initial encounter (principal); W19.XXXA Unspecified fall, initial encounter; S20.219A Contusion of unspecified front wall of thorax, initial encounter; W18.09XA Striking against other object with subsequent fall, initial encounter; Y93.89 Activity, other specified; Y92.009 Unspecified place in unspecified non-institutional (private) residence as the place of occurrence of the external cause; I10 Essential (primary) hypertension; E11.9 Type 2 diabetes mellitus without complications; Z88.0 Allergy status to penicillin; Z88.6 Allergy status to analgesic agent; Z88.5 Allergy status to narcotic agent; Z88.1 Allergy status to other antibiotic agents
CPT/HCPCS: 99285; 96374; 36415; 85025; 84484; 71046; 70450; 93005; 93010; J0131